=== PATIENT | male | born 1985 ===

== ENCOUNTER → 2024-09-29 | Outpatient (REF) | payer OTHER ==
[2024-09-29 13:19] LABS: SEMEN APPEARANCE OPAQUE (OPAQUE); SEMEN VISCOSITY LIQUID (LIQUID); SEMEN VOLUME 3.0 ml (2.0-5.0); SPERM CONCENTRATION 129.3 M/ml (>=15.0); WBC CONCENTRATION <=1 M/ml (<=1 M/ml)
[2024-09-29 13:20] LABS: TOTAL PROGRESSIVE SPERM 116.6 M/Ejac.
== END ==
LOC: M LAB REF 13:14
PROVIDERS: ATTEND Physician Assistant
DX: N46.9 Male infertility, unspecified (principal)